=== PATIENT | male | born 1960 | race Two or more races ===

== ENCOUNTER 2022-11-07 15:26 | Emergency (ER) | payer OTHER ==
[~2022-11-07] VITALS: Ht 182.9 cm; Wt 70.3 kg
[2022-11-07] MEDS ORDERED: LOSARTAN POTASS50 MG PO (15:34)
== END 2022-11-07 17:19 | disposition home or self-care (01) ==
LOC: ER 15:26
DX: Z48.1 Encounter for planned postprocedural wound closure (principal)

== ENCOUNTER 2022-11-14 14:34 | Emergency (ER) | payer OTHER ==
[~2022-11-14] VITALS: Ht 182.9 cm; Wt 88.5 kg
== END 2022-11-14 17:39 | disposition home or self-care (01) ==
LOC: ER 14:34
DX: Z48.02 Encounter for removal of sutures (principal)

== ENCOUNTER → 2022-11-14 | Emergency (ER) | payer OTHER ==
[~2022-11-14] VITALS: Ht 182.9 cm; Wt 88.5 kg
[~2022-11-14] MED LIST: LOSARTAN POTASS50 MG PO
== END | disposition left against medical advice (07) ==
LOC: ER 04:56
DX: Z53.21 Procedure and treatment not carried out due to patient leaving prior to being seen by health care provider (principal)